=== PATIENT | male | born 1945 | race Two or more races ===

== ENCOUNTER 2018-11-14 21:19 | Emergency (ER) | payer MEDICARE ==
[~2018-11-14] VITALS: Ht 182.9 cm; Wt 127.0 kg
[2018-11-14] MEDS ORDERED: CALCIUM CHLOR(10%) 100MG/ML 10ML SYRINGE IV ONE (21:29)
[2018-11-14] MEDS ORDERED: SODIUM BICARBONATE 8.4% INJ 50ML SYRINGE IV ONE (21:29)
[2018-11-14] MEDS ORDERED: EPINEPHrine HCL 1 MG/10 ML SYRG IV ONE (21:29)
[2018-11-14] MEDS ORDERED: AMIODARONE HCL (50 MG/ ML) 3 ML VIAL IV ONE (21:29)
== END 2018-11-14 21:34 | disposition expired ==
LOC: EDBD 21:19 → ER 21:28
DX: I46.9 Cardiac arrest, cause unspecified (principal)
CPT/HCPCS: 92950; 99285; J0171; J0282